=== PATIENT | female | born 1970 | race Caucasian/White ===

== ENCOUNTER 2018-11-10 19:57 | Emergency (ER) | payer OTHER, SELFPAY ==
[2018-11-10 20:35] LABS: #Eosinphils 0.1 thou/uL (0.0-0.7); #Lymphocytes 2.9 thou/uL (1.20-3.40); #Monocytes 0.4 thou/uL (0.11-0.59); #Neutrophils 6.7 thou/uL (1.40-6.50); %Basophils 0.3 % (0.0-1.0); %Eosinophils 1.4 % (0.0-10.0); %Lymphocytes 28.3 % (21.0-51.0); %Monocytes 4.3 % (0.0-10.0); %Neutrophils 65.6 % (42.0-75.0); Hemoglobin 13.6 g/dL (12.0-16.0); Mean Corpuscular HGB CONC 31.6 g/dL (32.0-36.0); Mean Corpuscular Hemoglobin 28.9 pg (27.0-31.0); Mean Corpuscular Volume 91.5 fL (78.0-98.0); Mean Platelet Volume 7.3 fL (7.4-10.4); Platelet Count 274 thou/uL (130-400); RBC Distribution Width 12.9 % (11.5-14.5); White Blood Cell (WBC) Count 10.2 thou/uL (4.8-10.8)
[2018-11-10 20:57] LABS: Anion Gap 10 mmol/L (10-20); BUN (Urea Nitrogen) 6 mg/dL (7.0-18.7); Calc. Creatinine Clearance 0 mL/min (70-130); Carbon Dioxide 29 mmol/L (22-29); Chloride 102 mmol/L (98-107); Estimated GFR-MDRD 84; Potassium 3.4 mmol/L (3.5-5.1); Sodium 138 mmol/L (136-145)
[2018-11-10 20:58] LABS: ALT (SGPT) 21 U/L (8-55); AST (SGOT) 25 U/L (5-34); Albumin 4.4 g/dL (3.5-5.0); Alkaline Phosphatase 68 U/L (40-150); Bilirubin, Total 0.5 mg/dL (0.2-1.2); Calcium 9.4 mg/dL (7.8-10.44); Globulin 2.8 g/dL (2.4-3.5); Glucose 88 mg/dL (70-105); Protein, Total 7.2 g/dL (6.0-8.3)
[2018-11-10 20:59] LABS: CKMB 2.9 ng/mL (0-6.6)
--- NOTE | 2018-11-10 21:08 | RAD ---
PORTABLE AP CHEST X-RAY 11/10/18 HISTORY: Chest pain. COMPARISON: None available. FINDINGS: The cardiac silhouette and pulmonary vasculature are within normal limits for the portable technique of the study. Lungs are clear. Osseous structures are intact. Surgical clips overlie the right upper quadrant. IMPRESSION: No acute cardiopulmonary process. POS: [facility]
--- NOTE | 2018-11-10 22:02 | ULT ---
LEFT LOWER EXTREMITY VENOUS DOPPLER WITH SPECTRAL ANALYSIS AND COLOR FLOW EVALUATION 11/10/18 HISTORY: Left ankle pain and edema. FINDINGS: Contreras scale, color flow, doppler evaluation, and spectral analysis of the left lower extremity venous structures is performed with 2D imaging. The left lower extremity common femoral, superficial femoral , popliteal, posterior tibial, most proximal greater saphenous and profunda femoral veins are imaged. There is normal lumen compressibility, flow, an augmentation of the visualized deep venous structures left lower extremity. IMPRESSION: No evidence of a DVT involving the visualized deep venous structures left lower extremity. POS: [facility]
[2018-11-10] MEDS ORDERED: Potassium Chloride 20 MEQ TAB ONE (22:44)
--- NOTE | 2018-11-13 12:15 | EKG ---
Test Reason : Blood Pressure : / mmHG Vent. Rate : 074 BPM Atrial Rate : 074 BPM P-R Int : 164 ms QRS Dur : 072 ms QT Int : 388 ms P-R-T Axes : 026 -03 008 degrees QTc Int : 430 ms Normal sinus rhythm Low voltage QRS Borderline ECG Confirmed by HERMELINDO ALLEN DO ([id number]), editor sound LUZ BECK ([id number]) on 11/13/2018 12:15:16 PM Referred By: Confirmed By:HERMELINDO ALLEN DO
== END 2018-11-10 22:57 | disposition home or self-care (01) ==
LOC: ERS 19:57
DX: M79.662 Pain in left lower leg (principal); R07.9 Chest pain, unspecified; E87.6 Hypokalemia; Z87.891 Personal history of nicotine dependence
CPT/HCPCS: 36415; 71045; 80053; 82553; 83880; 84443; 84484; 85025; 85379; 93005